=== PATIENT | female | born 1980 | race American Indian/Alaskan Native ===

== ENCOUNTER 2017-09-18 14:09 | Emergency (ER) | payer OTHER ==
[2017-09-18 14:31] VITALS: BP 127/75
[2017-09-18] MEDS ORDERED: ZOFRAN IV ONE (16:07)
[2017-09-18] MEDS ORDERED: TORADOL IV ONE (16:07)
[2017-09-18] MEDS ORDERED: NACL 0.9% 1000 ML 1,000 ML IV ONE (16:07)
--- NOTE | 2017-09-18 16:07 | Emergency Department Report ---
Blank Doc - Documentation Documentation: Patient is a 37-year-old black female presenting with migraine headache. Patient also has had nausea vomiting headache is right sided 8 out of 10 in severity is been present for 3 days. Patient be moved to a treatment room for menstrual symptomatic relief
--- NOTE | 2017-09-18 17:40 | Emergency Department Report ---
ED Headache HPI - General Chief Complaint: Headache Stated Complaint: HEADACHE Time Seen by Provider: 09/18/17 16:07 Source: patient, family - History of Present Illness Initial Comments: Patient reports onset headache yesterday with nausea and sensitivity to light. Patient has a history of migraine headache. Surgical history of tubal ligation. Denies any dizziness, fever or chills. Headache is located frontally to headache is right sided 8 out of 10 in severity , pain is achy and worse with exposure to light. She says she just taken medication over-the- counter without any relief. Patient does not have a primary care physician nor does she have a neurologist. Denies any head injury and has similar incident in the past. Denies any visual difficulties. Timing/Duration: 24 hours, increasing, waxing and waning Quality: severe, achy Head Injury Location: frontal (right) Recent Head Trauma: chronic headaches Modifying Factors: improves with: exposure to light, movement, rest Associated Symptoms: nausea/vomiting. denies: confusion, fatigue, facial pain, fever/chills, flushing, loss of consciousness, nasal congestion, nasal drainage , numbness in legs/feet, rash, seizures, sinus infection, stiff neck, vision changes, weakness Allergies/Adverse Reactions: Allergies iodine Allergy (Severe, Verified 04/20/16 12:26) Anaphylaxis Home Medications: Ambulatory Orders Cyclobenzaprine [Flexeril] 10 mg PO TID PRN #15 tablet 04/20/16 traMADol [Ultram] 50 mg PO Q6HR PRN #20 tablet 04/20/16 Codeine/Butalbital/ASA/Caffein [Fiorinal with Codeine #3 Cap] 1 each PO Q8H PRN #15 capsule 09/18/17 Ondansetron [Zofran Odt] 4 mg PO Q8HR PRN #15 tab.rapdis 09/18/17 ED Review of Systems ROS: Stated complaint: HEADACHE Other details as noted in HPI Comment: All other systems reviewed and negative Constitutional: no symptoms reported Eyes: other (light sensitivity). denies: eye pain ENT: denies: ear pain, throat pain, congestion Respiratory: no symptoms reported Cardiovascular: denies: chest pain, palpitations, dyspnea on exertion, edema, syncope, paroxysmal nocturnal dyspnea Gastrointestinal: nausea, vomiting. denies: abdominal pain, diarrhea, constipation, hematemesis, melena, hematochezia Genitourinary: denies: urgency Musculoskeletal: denies: back pain, joint swelling, arthralgia, myalgia Skin: denies: rash Neurological: headache. denies: weakness, numbness, paresthesias, confusion, abnormal gait, vertigo ED Past Medical Hx - Past Medical History Previous Medical History?: Yes Hx Headaches / Migraines: Yes - Surgical History Past Surgical History?: Yes Additional Surgical History: tubal ligation 2010 - Family History Family history: hypertension - Social History Smoking Status: Never Smoker Substance Use Type: None - Medications Home Medications: Home Medications Medication Instructions Recorded Confirmed Last Taken Type Cyclobenzaprine [Flexeril] 10 mg PO TID PRN #15 tablet 04/20/16 Unknown Rx traMADol [Ultram] 50 mg PO Q6HR PRN #20 tablet 04/20/16 Unknown Rx Codeine/Butalbital/ASA/Caffein 1 each PO Q8H PRN #15 capsule 09/18/17 Unknown Rx [Fiorinal with Codeine #3 Cap] Ondansetron [Zofran Odt] 4 mg PO Q8HR PRN #15 tab.rapdis 09/18/17 Unknown Rx ED Physical Exam - General Limitations: No Limitations General appearance: alert, in no apparent distress - Head Head exam: Present: atraumatic, normocephalic, normal inspection, other (normal exam) - Eye Eye exam: Present: normal appearance, PERRL, EOMI. Absent: scleral icterus, conjunctival injection, nystagmus, periorbital swelling, periorbital tenderness Pupils: Present: normal accommodation - ENT ENT exam: Present: normal exam, normal orophraynx, mucous membranes moist. Absent: TM's normal bilaterally, normal external ear exam - Neck Neck exam: Present: normal inspection, full ROM, other (no C-spine tenderness). Absent: tenderness, meningismus, lymphadenopathy, thyromegaly - Respiratory Respiratory exam: Present: normal lung sounds bilaterally. Absent: respiratory distress, chest wall tenderness, accessory muscle use - Cardiovascular Cardiovascular Exam: Present: regular rate, normal rhythm, normal heart sounds. Absent: systolic murmur, diastolic murmur - GI/Abdominal GI/Abdominal exam: Present: soft, normal bowel sounds. Absent: distended, tenderness, guarding, rebound, rigid, organomegaly, mass, bruit, pulsatile mass , hernia - Extremities Exam Extremities exam: Present: normal inspection, full ROM, normal capillary refill , other (no clubbing, cyanosis or edema. +2 pulses lower extremities). Absent : tenderness, pedal edema, joint swelling, calf tenderness - Back Exam Back exam: Present: normal inspection, full ROM, other (Ambulates without any difficulties). Absent: tenderness, CVA tenderness (R), CVA tenderness (L), muscle spasm, paraspinal tenderness, vertebral tenderness, rash noted - Neurological Exam Neurological exam: Present: alert, oriented X3, normal gait, reflexes normal. Absent: motor sensory deficit - Expanded Neurological Exam Expanded Neurological exam: Absent: innattentive, memory loss-remote event, memory loss- recent event, ataxia, receptive aphasia, expressive aphasia, total aphasia, tremor, protecting the airway Patient oriented to: Present: person, place, time Speech: Present: fluid speech Cranial nerves: EOM's Intact: Normal, Gag Reflex: Normal, Tongue Deviation: Normal, Nystagmus: Normal, Facial Sensation: Normal Cerebellar function: Romberg: Normal Upper motor neuron: Pronator Drift: Normal, Sensory Extinction: Normal Sensory exam: Upper Extremity Light Touch: Normal, Upper Extremity Temperature: Normal, UE 2 Point Discrimination: Normal, Lower Extremity Light Touch: Normal, Lower Extremity Temperature: Normal, LE 2 Point Discrimination: Normal Motor strength exam: RUE: 5, LUE: 5, RLE: 5, LLE: 5 DTR: bicep (R): 2+, bicep (L): 2+, tricep (R): 2+, tricep (L): 2+, knee (R): 2+ , knee (L): 2+, ankle (R): 2+, ankle (L): 2+ Best Eye Response ([place]): (4) open spontaneously Best Motor Response ([place]): (6) obeys commands Best Verbal Response ([place]): (5) oriented [place] Total: 15 - Psychiatric Psychiatric exam: Present: normal affect, normal mood - Skin Skin exam: Present: warm, dry, intact, normal color. Absent: rash ED Course Vital Signs 09/18/17 14:29 Temperature 98.7 F Pulse Rate 74 Respiratory 16 Rate Blood Pressure 127/75 O2 Sat by Pulse 100 Oximetry - Reevaluation(s) Reevaluation #1: 09/18/17 18:00 She received 1 L normal saline IV fluid, Toradol 30 mg IV and Zofran 4 mg IV for relief of headache down to 2/10. She denies any nausea and no episode of vomiting while in the ED ED Medical Decision Making - Medical Decision Making ED course: Patient with episode of migraine headache that started yesterday. She has a history of migraine but does not have any primary care or neurologist. Physical findings were normal and neurological exam. She says she 's been diagnosed by a neurologist in the past but she does not have access to a physician at present. She was given IV fluids 1 L, Zofran 4 mg IV and Toradol 30 mg IV for relief of nausea, vomiting and headache. Pain is now 2/ 10. I discussed with patient to follow-up at [facility] and also neurologist to manage her chronic headache and she voiced understanding. Patient discharged home with prescription for Fioricet and Zofran. Critical care attestation.: If time is entered above; I have spent that time in minutes in the direct care of this critically ill patient, excluding procedure time. ED Disposition Clinical Impression: Migraine aura without headache Nausea & vomiting Qualifiers: Vomiting type: unspecified Vomiting Intractability: non-intractable Qualified Code(s): R11.2 - Nausea with vomiting, unspecified Disposition: DC-01 TO HOME OR SELFCARE Is pt being admited?: No Does the pt Need Aspirin: No Condition: Stable Instructions: Migraine Headache (ED), Acute Nausea and Vomiting (ED) Additional Instructions: Please follow up with outside Medical Center and see neurologist referral for management of chronic migraine headache. Please do not take Fioricet with codeine while driving or operating heavy machinery as medication causes drowsiness Take Zofran for nausea. Prescriptions: Codeine/Butalbital/ASA/Caffein [Fiorinal with Codeine #3 Cap] 1 each PO Q8H PRN #15 capsule PRN Reason: Migraine Headache Ondansetron [Zofran Odt] 4 mg PO Q8HR PRN #15 tab.rapdis PRN Reason: Nausea And Vomiting Referrals: [facility] [Outside] - 09/20/17 CAROLINA PIRES MD [Staff Physician] - 09/20/17 Forms: Work/School Release Form(ED)
== END 2017-09-18 18:13 | disposition home or self-care (01) ==
LOC: ED 14:09
DX: G43.109 Migraine with aura, not intractable, without status migrainosus (principal); R11.2 Nausea with vomiting, unspecified; Z88.8 Allergy status to other drugs, medicaments and biological substances
CPT/HCPCS: 96361; 96374; 96375; 99282; J1885; J2405; J7030

== ENCOUNTER 2018-03-04 17:25 | Emergency (ER) | payer OTHER, MEDICAID ==
[2018-03-04 17:59] VITALS: BP 111/65
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
[2018-03-04] MEDS ORDERED: MOTRIN PO ONE (19:26)
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
== END 2018-03-04 21:27 | disposition home or self-care (01) ==
LOC: ED 17:25
DX: S13.4XXA Sprain of ligaments of cervical spine, initial encounter (principal); S39.012A Strain of muscle, fascia and tendon of lower back, initial encounter; M25.512 Pain in left shoulder; G43.909 Migraine, unspecified, not intractable, without status migrainosus; Z88.8 Allergy status to other drugs, medicaments and biological substances; V89.2XXA Person injured in unspecified motor-vehicle accident, traffic, initial encounter; Y93.89 Activity, other specified; Y92.488 Other paved roadways as the place of occurrence of the external cause; Y99.8 Other external cause status
CPT/HCPCS: 72040; 99283

== ENCOUNTER 2019-02-25 09:49 | Observation (INO) | payer MEDICAID, OTHER ==
--- NOTE | 2019-02-24 11:45 | Anesthesia Consultation ---
Anesthesia Consult and Med Hx Date of service: 02/25/19 - Airway Anesthetic Teeth Evaluation: Good ROM Head & Neck: Adequate Mental/Hyoid Distance: Adequate Mallampati Class: Class II Intubation Access Assessment: Good - Pre-Operative Health Status ASA Pre-Surgery Classification: ASA1 Proposed Anesthetic Plan: General Nerve Block: TAP - Central Nervous System Hx Neuromuscular Disorder: Yes (Migraines) Hx Psychiatric Problems: No - Hematic Hx Anemia: Yes - Other Systems Hx Cancer: No
[2019-02-24 12:05] LABS: Basophils % (Auto) 0.8 % (0.0-1.8); Eosinophils # (Auto) 0.3 K/mm3 (0.0-0.4); Eosinophils % (Auto) 4.8 % (0.0-4.3); Hematocrit 34.6 % (30.3-42.9); Mean Corpuscular HGB Conc 32 % (30-34); Mean Corpuscular Volume 89 fl (79-97); Monocytes # (Auto) 0.5 K/mm3 (0.0-0.8); Monocytes % (Auto) 9.8 % (0.0-7.3); Platelet Count 288 K/mm3 (140-440); Red Blood Count 3.89 M/mm3 (3.65-5.03); Red Cell Distribution Width 15.1 % (13.2-15.2)
[~2019-02-25 09:49] MED LIST: DILAUDID IV PRN; LACTATED RINGERS 1,000 ML IV SCH; NEURONTIN PO NR; SUBLIMAZE IV PRN; TRANSDERM-SCOP TD NR; TYLENOL PO ONE; ZOFRAN IV PRN
[2019-02-25] MEDS ORDERED: ZEMURON IV ONE (10:02)
[2019-02-25] MEDS ORDERED: XYLOCAINE MPF 2% ONE (10:02)
[2019-02-25] MEDS ORDERED: DILAUDID ONE (10:03)
[2019-02-25] MEDS ORDERED: DIPRIVAN 10 MG/ML IV ONE (10:03)
[2019-02-25] MEDS ORDERED: SUBLIMAZE IV PRN (10:03)
[2019-02-25] MEDS ORDERED: DILAUDID IV PRN (10:03)
--- NOTE | 2019-02-25 10:04 | Anesthesia Day of Surgery ---
Anesthesia Day of Surgery - Day of Surgery Patient Examined: Yes Patient H&P Reviewed: Yes Patient is NPO: Yes
[2019-02-25] MEDS ORDERED: MARCAINE-EPI 0.25%-1:200,000 INFILTRATI ONE (10:09)
[2019-02-25] MEDS ORDERED: TYLENOL ONE (10:26)
[2019-02-25] MEDS ORDERED: TRANSDERM-SCOP TD ONE (10:48)
[2019-02-25] MEDS ORDERED: TRANSDERM-SCOP TD NR (11:00)
[2019-02-25] MEDS ORDERED: SUBLIMAZE IV ONE (11:00)
[2019-02-25] MEDS ORDERED: VERSED IV NR (11:00)
[2019-02-25] MEDS ORDERED: NEURONTIN PO NR (11:00)
--- NOTE | 2019-02-25 11:09 | History and Physical Report ---
History of Present Illness Date of examination: 02/25/19 Chief complaint: Symptomatic uterine fibroid History of present illness: Pt is a 38yo BF LMP 02/06/19 presents for surgical evaluation and treatment of menometrorrhagia. She complains of prolonged heavy vaginal bleeding requiring a blood transfusion in the past, and unresponsive to hormonal therapy. She has had a Bilateral Tubal Ligation and does not desire future fertility. She is therefore scheduled for a Robotic Assisted Total Hysterectomy with Ovarian conservation. Past History Past Medical History: no pertinent history, blood transfusion Past Surgical History: other (BTL) Social history: no significant social history, single Medications and Allergies Allergies Allergy/AdvReac Type Severity Reaction Status Date / Time iodine Allergy Severe Anaphylaxis Verified 02/21/19 16:16 Home Medications Medication Instructions Recorded Confirmed Last Taken Type No Known Home Medications [No 02/21/19 02/21/19 Unknown History Reported Home Medications] Active Meds: Active Medications Celecoxib (Celebrex) 200 mg PO PREOP NR Stop: 02/25/19 23:00 Fentanyl (Sublimaze) 50 mcg IV Q5MIN PRN PRN Reason: Pain , Severe (7-10) Stop: 02/25/19 23:00 Gabapentin (Neurontin) 300 mg PO PREOP NR Stop: 02/25/19 23:00 Hydromorphone HCl (Dilaudid) 0.5 mg IV Q10MIN PRN PRN Reason: Pain , Severe (7-10) Stop: 02/25/19 23:00 Lactated Ringer's (Lactated Ringers) 1,000 mls @ 125 mls/hr IV DIRECT RAVINDER Midazolam HCl (Versed) 2 mg IV PREOP NR Stop: 02/25/19 23:59 Ondansetron HCl (Zofran) 4 mg IV ONCE PRN PRN Reason: Nausea And Vomiting Scopolamine (Transderm-Scop) 1 each TD PREOP NR Stop: 02/25/19 23:59 Review of Systems All systems: negative - Vital Signs Vital signs: Vital Signs Temp Pulse Resp BP Pulse Ox 97.5 F L 64 20 114/67 100 02/24/19 11:35 02/24/19 11:35 02/24/19 11:35 02/24/19 11:35 02/24/19 11:35 Temp Pulse Resp BP Pulse Ox 98.9 F 86 16 115/71 98 02/25/19 10:20 02/25/19 10:20 02/25/19 10:20 02/25/19 10:20 02/25/19 10:20 - Physical Exam Breasts: Positive: deferred Cardiovascular: Regular rate Lungs: Positive: Clear to auscultation Abdomen: Positive: normal appearance Genitourinary (Female): Positive: normal external genitalia Uterus: Positive: normal size Extremities: Positive: normal Results Result Diagrams: 02/24/19 11:45 Abnormal lab results 02/24/19 Range/Units 11:45 Lymph % (Auto) 37.0 H (13.4-35.0) % [place] % (Auto) 9.8 H (0.0-7.3) % Eos % (Auto) 4.8 H (0.0-4.3) % All other labs normal. Ultrasound: report reviewed Assessment and Plan - Patient Problems (1) Menometrorrhagia Onset Date: 02/25/19 Current Visit: Yes Status: Acute Plan to address problem: A: Menometrorrhagia - unresponsive to hormonal therapy P: Will admit for a Robotic Assisted Total Hysterectomy with Bilateral Salpingectomy
[2019-02-25] MEDS ORDERED: ANCEF/STERILE WATER 2 GM/20 ML 2 GM/20 ML SYRINGE IV NR (12:00)
[2019-02-25] MEDS ORDERED: NEOSPORIN GU IR ONE ×2 (12:54→13:55)
[2019-02-25] MEDS ORDERED: TYLENOL PO SCH (13:00)
[2019-02-25] MEDS ORDERED: PHENYLEPHRINE/NS Syringe 1,000 MCG/10 ML IV ONE (13:38)
[2019-02-25] MEDS ORDERED: DECADRON ONE (13:38)
[2019-02-25] MEDS ORDERED: ZOFRAN ONE (13:38)
[2019-02-25] MEDS ORDERED: NACL 0.9% IR ONE ×2 (13:55)
[2019-02-25] MEDS ORDERED: MILK OF MAGNESIA PO PRN (14:38)
[2019-02-25] MEDS ORDERED: ZOFRAN IV PRN (14:38)
[2019-02-25] MEDS ORDERED: NORCO 5/325 PO PRN (14:38)
[2019-02-25] MEDS ORDERED: TYLENOL PO PRN (14:38)
[2019-02-25] MEDS ORDERED: NARCAN 0.4 MG/1 ML IV PRN (14:38)
[2019-02-25] MEDS ORDERED: D5LR 1,000 ML IV ONE (14:50)
[2019-02-25] MEDS ORDERED: TORADOL ONE (15:25)
[2019-02-25] MEDS ORDERED: LACTATED RINGERS 1,000 ML ONE (15:30)
[2019-02-25] MEDS: TORADOL IV SCH ×2 (15:35→21:35)
--- NOTE | 2019-02-25 17:18 | Post Anesthesia Evaluation ---
- Post Anesthesia Evaluation Patient Participated: Yes Airway Patent: Yes Stable Respiratory Function: Yes Nausea/Vomiting: No Temp > 96.8F: Yes Pain Manageable: Yes Adequeate Hydration: Yes Anesthesia Complications: No Block Receding Appropriately: Not Applicable Patient on Ventilator: No
--- NOTE | 2019-02-25 18:46 | Operative Report ---
Operative Report Operative Report: Date of procedure: 02/25/2019 Pre-operative diagnosis: Menometrorrhagia Post-operative diagnosis: Same Procedure name(s): 1. Robotic-assisted total hysterectomy 2. Bilateral salpingectomy Surgeon: Didier Arteaga MD Security Systems Administrator: Sharmaine Deras CSA Anesthesia: RADHA Block followed by general endotracheal intubation EBL: 100 mL's Findings: An 8-10 weeks size uterus with tubes showing evidence of previous tubal ligation bilaterally, and normal ovaries bilaterally. Procedure: After the patient's first correctly identified she was prepped and draped in the usual sterile fashion and placed in the dorsolithotomy position. The bladder was first catheterized using Kyle catheter and the speculum was placed in the vagina and the anterior lip of the cervix was grasped using a single-tooth tenaculum, and the medium Vesicare cup was placed. The tenaculum and speculum was then removed from the vagina and attention was then turned to the abdomen. The skin knife was used to make a small incision approximately 5 cm above the umbilicus through which a 12 mm trocar was placed under direct visualization. After adequate amount of abdominal insufflation visualization of the pelvic organs found the uterus to be enlarged and the tubes showed evidence of previous tubal ligation bilaterally and ovaries were normal bilaterally. A right and left paramedian incision was made through which the 8 mm trochars were placed under direct visualization and a 5 mm trocar was placed in the right lower quadrant. The patient was then placed in steep Trendelenburg positioning and the robot was docked on the patient's left side. After all the robotic ports were connected and adequate functioning of the robotic arms were tested the surgeon then proceeded to the console to begin the hysterectomy. First the left round ligament was grasped, cauterized and cut, the left utero- ovarian ligaments were grasped, cauterized and cut, and the left fallopian tube also grasped, cauterized and cut thus freeing the left ovary from the left uterine sidewall. The same procedure was performed on the right. The right round ligament was grasped, cauterized and cut, the right utero-ovarian ligaments were grasped, cauterized and cut, and the right fallopian tube also grasped, cauterized and cut thus freeing the right ovary from the right uterine sidewall. The bladder flap was taken down anteriorly and the uterine vessels were grasped, cauterized and cut bilaterally. The cardinal ligaments were sequentially grasped, cauterized and cut down to the level of the uterosacral ligaments. At this time the posterior colpotomy was performed over the Vcare cup, and the cervix was circumscribed beginning posteriorly and meeting anteriorly until the cervix was freed. The cervix and uterus was then removed through the vagina and sent to pathology. The vaginal cuff was then closed using 2-0 Vloc suture in a running fashion. Irrigation was then performed and after good hemostasis was achieved the procedure was considered complete. The Tisseel sealant was then sprayed across the vaginal cuff site, and after ex cellent hemostasis was assured. Interceed was placed across the vaginal cuff site. The abdominal pressure was reduced to 8 mmHg and excellent hemostasis was assured. All instruments were then removed from the abdominal cavity. Each incision was closed using 0 Vicryl suture in a [id number] configuration on the fascia followed by 4-0 Monocryl suture in a sub-cuticular fashion on the skin. Each incision was also infiltrated using 0.5% Marcaine solution. The vaginal pack was removed. The patient tolerated the procedure well and was transported to the recovery room in stable condition.
[2019-02-25] MEDS: PERCOCET 5/325 PO PRN (19:51)
[2019-02-25] MEDS ORDERED: COLACE PO SCH (22:00)
[2019-02-25] MEDS: D5LR 1,000 ML IV SCH (22:07)
[2019-02-25] MEDS: ANCEF/NS 1 GM/50 ML 1 GM/50 ML BAG IV SCH (22:08)
[2019-02-26] MEDS: TORADOL IV SCH ×3 (04:17→15:00)
[2019-02-26] MEDS: ANCEF/NS 1 GM/50 ML 1 GM/50 ML BAG IV SCH (04:17)
[2019-02-26 06:46] LABS: Hemoglobin 9.6 gm/dl (10.1-14.3)
[2019-02-26] MEDS: D5LR 1,000 ML IV SCH ×2 (07:00→08:25)
--- NOTE | 2019-02-26 09:00 | Progress Note ---
Assessment and Plan - Patient Problems (1) Menometrorrhagia Onset Date: 02/25/19 Current Visit: Yes Status: Resolved (2) Status post robot-assisted surgical procedure Onset Date: 02/26/19 Current Visit: Yes Status: Resolved Plan to address problem: A: S/P RATH - POD #1 Doing well Asymptomatic anemia - stable P: May go home later today Subjective - Subjective Date of service: 02/26/19 Principal diagnosis: s/p RATH - POD #1 Interval history: Pt is feeling well s/p a Robotic Assisted Total Hysterectomy with Bilateral salpingectomy. She is tolerating a liquid diet without nausea or vomiting, amb ulating and voiding without difficulty. Patient reports: appetite normal, voiding normally, pain well controlled, ambulating normally, no dizzy ambulation, no flatus, no nauseated Objective - Vital Signs Latest vital signs: Vital Signs Temp Pulse Resp BP BP Pulse Ox 02/26/19 04:15 98.7 F 78 18 99/63 02/26/19 00:30 98.8 F 74 19 101/72 02/25/19 20:30 98.8 F 87 18 124/67 02/25/19 16:10 97.3 F L 73 18 121/51 100 02/25/19 15:35 13 02/25/19 15:30 59 L 14 101/56 97 02/25/19 15:15 97.2 F L 56 L 14 92/52 100 02/25/19 15:10 57 L 14 91/50 100 02/25/19 15:05 58 L 17 101/50 100 02/25/19 15:00 66 18 112/63 100 02/25/19 14:55 56 L 16 92/55 100 02/25/19 14:50 96.5 F L 58 L 12 93/53 100 02/25/19 11:40 68 13 112/58 100 02/25/19 11:35 77 14 106/67 100 02/25/19 11:30 75 13 108/68 100 02/25/19 11:25 77 14 114/65 100 02/25/19 11:20 86 19 111/67 100 02/25/19 11:18 16 02/25/19 11:16 72 12 112/59 100 02/25/19 10:30 98.9 F 86 16 115/71 98 02/25/19 10:25 16 02/25/19 10:20 98.9 F 86 16 115/71 98 Intake and Output 02/25/19 02/26/19 02/26/19 22:59 06:59 14:59 Intake Total 550 968.75 177.083 Output Total 700 2200 Balance -150 -1231.25 177.083 Intake: IV 50 968.75 177.083 ANCEF/NS 1 GM/50 ML 1 gm 50 In 50 ml @ 100 mls/hr IV Q8H RAVINDER Rx#:[id number] D5lr 1,000 ml @ 125 mls/ 968.75 177.083 hr IV DIRECT RAVINDER Rx#: [id number] Oral 200 Intake, Free Water 300 Output: Urine 700 2200 Indwelling Catheter 700 2200 Other: Total, Intake Amount 200 Total, Output Amount 700 800 Voiding Method Indwelling Catheter - Exam Abdomen: Present: normal appearance, soft Incision: Present: normal, dry, intact - Labs Labs: Abnormal lab results 02/26/19 Range/Units 06:05 Hgb 9.6 L (10.1-14.3) gm/dl Hct 30.0 L (30.3-42.9) % Laboratory Tests 02/24/19 02/24/19 02/25/19 11:45 11:45 10:10 WBC 5.4 RBC 3.89 Hgb 11.0 Hct 34.6 MCV 89 MCH 28 MCHC 32 RDW 15.1 Plt Count 288 Lymph % (Auto) 37.0 H [place] % (Auto) 9.8 H Eos % (Auto) 4.8 H Baso % (Auto) 0.8 Lymph # 2.0 [place] # 0.5 Eos # 0.3 Baso # 0.0 Seg Neutrophils % 47.6 Seg Neutrophils # 2.6 HCG, Qual Negative Blood Type O POSITIVE Antibody Screen Negative 02/26/19 06:05 WBC RBC Hgb 9.6 L Hct 30.0 L MCV MCH MCHC RDW Plt Count Lymph % (Auto) [place] % (Auto) Eos % (Auto) Baso % (Auto) Lymph # [place] # Eos # Baso # Seg Neutrophils % Seg Neutrophils # HCG, Qual Blood Type Antibody Screen
--- NOTE | 2019-02-26 09:41 | Discharge Summary ---
Providers - Providers Date of Admission: 02/25/19 14:38 Date of discharge: 02/26/19 Attending physician: COBY GRUBBS [facility] Reason for admission: other (Menometrorrhagia) Procedure: other (Robotic Assisted Total Hysterectomy with Bilateral Salpingectomy) Episiotomy: none Laceration: none Incision: normal, dry, intact Other procedures: none complications: none Discharge diagnosis: other (s/p RATH) Hospital course: Pt is a 38yo BF LMP 02/06/19 who presented for surgical evaluation and treatment of menometrorrhagia. She complained of prolonged heavy vaginal bleeding requiring a blood transfusion in the past, and unresponsive to hormonal therapy. She had a Bilateral Tubal Ligation and did not desire future fertility. She therefore underwent an uncomplicated Robotic Assisted Total Hysterectomy with Bilateral salpingectomy and tolerated the procedure well. By POD #1 she was tolerating a reg diet without nausea or vomiting, ambulating and voiding without difficulty. She was therefore discharged to home on POD #1 in stable condition. Condition at discharge: Good Disposition: DC-01 TO HOME OR SELFCARE - Discharge Diagnoses (1) Menometrorrhagia Status: Resolved (2) Status post robot-assisted surgical procedure Status: Resolved Plan - Discharge Medications Prescriptions: oxyCODONE /ACETAMINOPHEN [Percocet 5/325 mg] 1 tab PO Q6H PRN #30 tablet PRN Reason: Pain, Moderate (4-6) - Provider Discharge Summary Activity: routine, no sex for 6 weeks, no heavy lifting 4 weeks, no strenuous exercise Diet: routine Instructions: routine Additional instructions: [] Smoking cessation referral if applicable(refer to patient education folder for contact #) [] Refer to [facility]'s [facility] Booklet Call your doctor immediately for: * Fever > 100.5 * Heavy vaginal bleeding ( >1 pad per hour) * Severe persistent headache * Shortness of breath * Reddened, hot, painful area to leg or breast * Drainage or odor from incision. * Keep incision clean and dry at all times and follow doctor's instructions regarding bathing/showering - Follow up plan Follow up: COBY GRUBBS MD [Staff Physician] - 14 Days GREENBUSH SERA MACK MD [Primary Care Provider] - 14 Days
[2019-02-26] MEDS: PERCOCET 5/325 PO PRN (16:16)
[2019-02-26 17:11] VITALS: BP 102/55
== END 2019-02-26 16:30 | disposition home or self-care (01) ==
LOC: OR 09:49 → OB 14:38
PROVIDERS: ADMIT Obstetrics & Gynecology; ATTEND Obstetrics & Gynecology
DX: N92.1 Excessive and frequent menstruation with irregular cycle (principal)
CPT/HCPCS: 36415; 58552; 64450; 84703; 85014; 85018; 85025; 86850; 86900; 86901; 88302; 88307; 96365; 96366; 96375; 96376; A4217; C1765; C9250; G0378; J0690; J1100; J1170; J1885; J2250; J2370; J2405; J2704; J3010; J7120; J7121; S2900